=== PATIENT | female | born 1975 | race Hispanic/Latino ===

== ENCOUNTER 2019-02-05 21:25 | Inpatient (IN) | payer SELFPAY ==
[~2019-02-05] VITALS: Ht 154.9 cm; Wt 71.2 kg
[2019-02-05] MEDS ORDERED: KETOROLAC TROMETHAMINE 30MG/ML ONE (22:06)
[2019-02-05] MEDS ORDERED: ONDANSETRON HCL 4 MG/2 ML VIAL ONE (22:06)
[2019-02-05 22:12] LABS: BASOPHILS % (AUTO) 0.4 % (0.0-5.0); EOSINOPHILS % (AUTO) 0.3 % (0.0-8.0); HEMATOCRIT 41.3 % (36-48); LYMPHOCYTES % (AUTO) 11.6 % (21.0-51.0); MEAN CORPUSCULAR HEMOGLOBIN 27.3 pg (27.0-33.0); MEAN CORPUSCULAR HGB CONC 33.9 g/dL (32.0-36.0); MEAN CORPUSCULAR VOLUME 80.7 fL (79-99); MONOCYTES % (AUTO) 5.6 % (3.0-13.0); NEUTROPHILS % (AUTO) 82.1 % (40.0-77.0); PLATELET COUNT (AUTO) 210 K/uL (130-400); RED BLOOD CELL COUNT(AUTO) 5.12 MIL/uL (4.00-5.50); RED CELL DISTRIBUTION WIDTH 15.8 % (11.0-15.5); WHITE BLOOD COUNT (AUTO) 9.7 K/uL (4.8-10.8)
[2019-02-05 22:14] LABS: APPEARANCE,URINE Clear (CLEAR); BILIRUBIN,URINE Negative (NEGATIVE); COLOR,URINE Yellow (YELLOW); GLUCOSE, URINE (UA) Negative (NEGATIVE); KETONES,URINE Negative (NEGATIVE); LEUKOCYTE ESTERASE ,URINE Negative (NEGATIVE); NITRATE,URINE Negative (NEGATIVE); OCCULT BLOOD,URINE Negative (NEGATIVE); PROTEIN,URINE Negative (NEGATIVE); UROBILINOGEN,URINE 0.2 mg/dL (0.2-1.0)
[2019-02-05 22:21] LABS: AMPHET/METH SCREEN,URINE NEGATIVE (NEGATIVE); BARBITURATE SCREEN, URINE NEGATIVE (NEGATIVE); BENZODIAZEPINES SCREEN,URINE NEGATIVE (NEGATIVE); CANNABINOID SCREEN,URINE NEGATIVE (NEGATIVE); COCAINE SCREEN,URINE NEGATIVE (NEGATIVE); OPIATE SCREEN,URINE NEGATIVE (NEGATIVE); PHENCYCLIDINE SCREEN,URINE NEGATIVE (NEGATIVE)
[2019-02-05 22:24] LABS: CREATININE 0.7 mg/dL (0.5-1.5); POTASSIUM 3.8 mmol/L (3.5-5.1)
[2019-02-05 22:27] LABS: ALBUMIN 4.1 g/dL (3.5-5.0); BILIRUBIN,DIRECT 0.2 mg/dL (0.0-0.3); BILIRUBIN,TOTAL 1.2 mg/dL (0.2-1.0); TOTAL PROTEIN, SERUM 8.4 g/dL (6.0-8.3)
[2019-02-05 22:28] LABS: HCG,QUAL RESULT NEGATIVE (NEGATIVE)
[2019-02-06] MEDS ORDERED: ONDANSETRON HCL 4 MG/2 ML VIAL IV PRN (00:15)
[2019-02-06] MEDS ORDERED: MORPHINE SULFATE 2 MG/ML 1ML SYG IV PRN (00:15)
[2019-02-06 02:40] VITALS: BP 136/71
[2019-02-06] MEDS: SODIUM CHLORIDE 0.9% 1000ML 1,000 ML IV SCH ×3 (03:19→17:27)
[2019-02-06] MEDS: KETOROLAC TROMETHAMINE 15MG/ML IV PRN (05:58)
[2019-02-06 07:00] VITALS: BP 112/70
[2019-02-06] MEDS: ENOXAPARIN SODIUM 40 MG/0.4 ML SYRINGE SQ SCH (09:00)
--- NOTE | 2019-02-06 10:01 | NUR ---
Niesha MORALES with Dr. Wise returned my call, notified her of consult for Dr. Wise, states she will let him know and call me back.
--- NOTE | 2019-02-06 10:40 | NUR ---
Niesha LINE ERECTOR APPRENTICE with Dr. Wise called me back stated Dr. Wise stated to call Dr. Mcarthur with pt.
[2019-02-06] MEDS: FAMOTIDINE/PF 20 MG/2 ML VIAL IV SCH ×2 (10:51→20:45)
--- NOTE | 2019-02-06 10:55 | NUR ---
Spoke with Nolvia at Dr. Mcarthur's office, states Dr. Mcarthur is not aviation survival technician and pt was given an appointment for 02/17/2019 at 2:30pm. Attempted to call Niesha back to notify her Dr. Mcarthur will not see the pt. No answer. Had her paged.
[2019-02-06 11:00] VITALS: BP 111/74
--- NOTE | 2019-02-06 12:05 | NUR ---
Spoke with Niesha MORALES with Dr. Wise, she said that Dr. 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 Called Dr. Mcarthur directly notified him of consult, states he will see the pt. and can feed her clear liquid diet.
[2019-02-06 16:00] VITALS: BP 131/78
--- NOTE | 2019-02-06 16:50 | NUR ---
Dr. Mcarthur in to see pt.
[2019-02-06] MEDS ORDERED: MAGNESIUM CITRATE 296 ML SOLUTION PO ONE (18:45)
[2019-02-06 20:00] VITALS: BP 135/88
[2019-02-07 00:04] VITALS: BP 126/75
[2019-02-07 04:00] VITALS: BP 140/56
[2019-02-07 05:10] LABS: BASOPHILS % (AUTO) 0.3 % (0.0-5.0); EOSINOPHILS % (AUTO) 2.3 % (0.0-8.0); HEMATOCRIT 34.9 % (36-48); LYMPHOCYTES % (AUTO) 30.6 % (21.0-51.0); MEAN CORPUSCULAR HEMOGLOBIN 27.2 pg (27.0-33.0); MEAN CORPUSCULAR HGB CONC 33.6 g/dL (32.0-36.0); MEAN CORPUSCULAR VOLUME 80.9 fL (79-99); MONOCYTES % (AUTO) 7.8 % (3.0-13.0); PLATELET COUNT (AUTO) 161 K/uL (130-400); RED BLOOD CELL COUNT(AUTO) 4.31 MIL/uL (4.00-5.50); RED CELL DISTRIBUTION WIDTH 15.6 % (11.0-15.5); WHITE BLOOD COUNT (AUTO) 6.2 K/uL (4.8-10.8)
[2019-02-07 05:24] LABS: CREATININE 0.5 mg/dL (0.5-1.5); POTASSIUM 4.1 mmol/L (3.5-5.1)
[2019-02-07] MEDS: SODIUM CHLORIDE 0.9% 1000ML 1,000 ML IV SCH ×2 (05:46→16:33)
[2019-02-07 07:00] VITALS: BP 123/79
[2019-02-07] MEDS: ENOXAPARIN SODIUM 40 MG/0.4 ML SYRINGE SQ SCH ×2 (09:00→09:30)
[2019-02-07] MEDS: FAMOTIDINE/PF 20 MG/2 ML VIAL IV SCH ×2 (09:30→21:50)
[2019-02-07] MEDS ORDERED: DIATR MEGLU/DIATRIZOATE SODIUM 30 ML BOTTLE ONE (10:30)
[2019-02-07 11:00] VITALS: BP 141/90
[2019-02-07 16:00] VITALS: BP 116/72
[2019-02-07 20:00] VITALS: BP 133/74
[2019-02-07] MEDS: KETOROLAC TROMETHAMINE 15MG/ML IV PRN (21:50)
[2019-02-08 00:03] VITALS: BP 109/66
[2019-02-08 04:02] VITALS: BP 136/77
[2019-02-08 05:50] LABS: BASOPHILS % (AUTO) 0.5 % (0.0-5.0); EOSINOPHILS % (AUTO) 5.3 % (0.0-8.0); HEMATOCRIT 36.7 % (36-48); LYMPHOCYTES % (AUTO) 33.8 % (21.0-51.0); MEAN CORPUSCULAR HEMOGLOBIN 26.6 pg (27.0-33.0); MEAN CORPUSCULAR HGB CONC 32.2 g/dL (32.0-36.0); MEAN CORPUSCULAR VOLUME 82.5 fL (79-99); MONOCYTES % (AUTO) 7.8 % (3.0-13.0); NEUTROPHILS % (AUTO) 52.6 % (40.0-77.0); NUCLEATED RED BLOOD CELLS 0.1 % (0.0-0.19); PLATELET COUNT (AUTO) 160 K/uL (130-400); RED BLOOD CELL COUNT(AUTO) 4.45 MIL/uL (4.00-5.50); RED CELL DISTRIBUTION WIDTH 15.9 % (11.0-15.5); WHITE BLOOD COUNT (AUTO) 5.9 K/uL (4.8-10.8)
[2019-02-08] MEDS: SODIUM CHLORIDE 0.9% 1000ML 1,000 ML IV SCH (06:16)
[2019-02-08 06:21] LABS: ALBUMIN 3.1 g/dL (3.5-5.0); CREATININE 0.6 mg/dL (0.5-1.5); POTASSIUM 3.8 mmol/L (3.5-5.1); TOTAL PROTEIN, SERUM 6.6 g/dL (6.0-8.3)
[2019-02-08 07:00] VITALS: BP 121/72
--- NOTE | 2019-02-08 08:00 | NUR ---
Received Mag sulfate and had oral contrast 02/07/2019 Addendum: 02/08/19 at 1107 by TENISHA VAUGHAN RN RN Amended: Links added.
[2019-02-08] MEDS: ENOXAPARIN SODIUM 40 MG/0.4 ML SYRINGE SQ SCH (09:00)
[2019-02-08] MEDS: FAMOTIDINE/PF 20 MG/2 ML VIAL IV SCH (10:19)
[2019-02-08 11:00] VITALS: BP 122/80
--- NOTE | 2019-02-08 15:27 | NUR ---
Notified Dr. King that Dr. Mcarthur was in to see pt & is ok to discharge her if she tolerates a regular diet. Inst. by her to call after pt. finished eating and let her know how pt. does. Addendum: 02/08/19 at 1539 by TENISHA VAUGHAN RN RN Notified Dr. Lainez, caitlyn King.
[2019-02-08 16:00] VITALS: BP 131/78
--- NOTE | 2019-02-08 19:30 | NUR ---
Discharge instructions given to the pt., pt. able to teach back. Will call for w/c when her ride is here.
== END 2019-02-08 20:40 | disposition home or self-care (01) | DRG 446 ==
LOC: EDH 21:25 → EDHIP 21:26 → 3DH 02-06 01:38 → 3AH 02-06 02:23
PROVIDERS: ADMIT Internal Medicine; ATTEND Internal Medicine
DX: K80.70 Calculus of gallbladder and bile duct without cholecystitis without obstruction (principal); Z88.1 Allergy status to other antibiotic agents; Z91.013 Allergy to seafood; Z88.8 Allergy status to other drugs, medicaments and biological substances; Z91.018 Allergy to other foods
CPT/HCPCS: 36415; 74176; 76705; 80048; 80053; 80076; 80305; 81003; 81025; 83690; 85025; A6250; G0378; J1650; J1885; J2405; J3490; Q9963

== ENCOUNTER 2021-08-31 11:47 | Emergency (ER) | payer OTHER, SELFPAY ==
[~2021-08-31] VITALS: Ht 154.9 cm; Wt 79.4 kg
[2021-08-31 11:56] VITALS: BP 140/76
[2021-08-31] MEDS ORDERED: HYDROCODONE/ACETAMINOPHEN 10/325 MG TAB PO ONE (13:00)
[2021-08-31] MEDS ORDERED: TETANUS/DIPHTHERIA TOXOID [ADULT] 0.5 ML VIAL IM ONE (13:00)
[2021-08-31] MEDS ORDERED: CYCLOBENZAPRINE HCL 10 MG TABLET PO ONE (13:00)
[2021-08-31] MEDS ORDERED: NAPR-1180 PO (13:43)
[2021-08-31] MEDS ORDERED: CYCL10TA16 PO (13:43)
== END 2021-08-31 14:24 | disposition home or self-care (01) ==
LOC: EDH 11:47
DX: S39.012A Strain of muscle, fascia and tendon of lower back, initial encounter (principal); S40.012A Contusion of left shoulder, initial encounter; S50.02XA Contusion of left elbow, initial encounter; S90.02XA Contusion of left ankle, initial encounter; S90.512A Abrasion, left ankle, initial encounter; I10 Essential (primary) hypertension; E66.9 Obesity, unspecified; Z88.8 Allergy status to other drugs, medicaments and biological substances; Z88.2 Allergy status to sulfonamides; V20.0XXA Motorcycle driver injured in collision with pedestrian or animal in nontraffic accident, initial encounter; Z79.1 Long term (current) use of non-steroidal anti-inflammatories (NSAID); Y93.89 Activity, other specified; Y92.89 Other specified places as the place of occurrence of the external cause; Y99.8 Other external cause status
CPT/HCPCS: 72100; 73030; 73070; 73610; 90471; 90714

== ENCOUNTER 2022-10-09 13:25 | Emergency (ER) | payer OTHER ==
[~2022-10-09] VITALS: Ht 175.3 cm; Wt 79.4 kg
[~2022-10-09 13:25] MED LIST: CYCL10TA16 PO; NAPR-1180 PO
[2022-10-09] MEDS ORDERED: KETOROLAC 30MG VIAL (30MG/ML) IM ONE (14:00)
[2022-10-09 16:03] VITALS: BP 143/81
== END 2022-10-09 16:03 | disposition home or self-care (01) ==
LOC: EDH 13:25
DX: M54.50 Low back pain, unspecified (principal); M54.6 Pain in thoracic spine; M25.551 Pain in right hip; J45.909 Unspecified asthma, uncomplicated; E78.00 Pure hypercholesterolemia, unspecified; I10 Essential (primary) hypertension; W18.39XA Other fall on same level, initial encounter; Y93.89 Activity, other specified; Y92.89 Other specified places as the place of occurrence of the external cause; Y99.8 Other external cause status
CPT/HCPCS: 99284; 71045; 72100; 72072; J1885

== ENCOUNTER 2022-12-24 20:01 | Emergency (ER) | payer OTHER ==
[~2022-12-24] VITALS: Ht 154.9 cm; Wt 77.1 kg
[2022-12-24] MEDS ORDERED: ACETAMINOPHEN 500 MG TABLET PO ONE (20:30)
[2022-12-24] MEDS ORDERED: ACETAMINOPHEN 500 MG TABLET ONE (20:52)
[2022-12-24] MEDS ORDERED: NAPR375T6 PO (22:03)
[2022-12-24 22:33] VITALS: BP 136/73
== END 2022-12-24 22:34 | disposition home or self-care (01) ==
LOC: EDH 20:01
DX: M25.561 Pain in right knee (principal); M25.511 Pain in right shoulder; M54.50 Low back pain, unspecified; M54.6 Pain in thoracic spine; I10 Essential (primary) hypertension; E78.00 Pure hypercholesterolemia, unspecified; J45.909 Unspecified asthma, uncomplicated; E66.01 Morbid (severe) obesity due to excess calories; Z68.31 Body mass index [BMI] 31.0-31.9, adult; Z91.030 Bee allergy status; Z91.018 Allergy to other foods; Z88.2 Allergy status to sulfonamides; Z88.5 Allergy status to narcotic agent; Z88.8 Allergy status to other drugs, medicaments and biological substances; X58.XXXA Exposure to other specified factors, initial encounter; Y93.89 Activity, other specified; Y92.89 Other specified places as the place of occurrence of the external cause; Y99.8 Other external cause status
CPT/HCPCS: 72070; 72100; 73030; 73562

== ENCOUNTER 2023-09-09 22:46 | Emergency (ER) | payer OTHER ==
[~2023-09-09] VITALS: Ht 154.9 cm; Wt 73.0 kg
[2023-09-10 01:12] LABS: BASOPHILS # (AUTO) 0.07 K/uL (0.00-0.20); BASOPHILS % (AUTO) 0.4 % (0.0-5.0); EOSINOPHILS # (AUTO) 0.29 K/uL (0.00-0.70); EOSINOPHILS % (AUTO) 1.6 % (0.0-8.0); LYMPHOCYTES % (AUTO) 11.3 % (21.0-51.0); MEAN CORPUSCULAR HGB CONC 31.7 g/dL (32.0-36.0); MEAN CORPUSCULAR VOLUME 81.9 fL (79-99); MONOCYTES # (AUTO) 1.3 K/uL (0.1-1.0); MONOCYTES % (AUTO) 7.2 % (3.0-13.0); NEUTROPHILS # (AUTO) 13.9 K/uL (1.8-7.7); NEUTROPHILS % (AUTO) 78.9 % (40.0-77.0); PLATELET COUNT (AUTO) 525 K/uL (130-400); RED BLOOD CELL COUNT(AUTO) 3.54 MIL/uL (4.00-5.50); RED CELL DISTRIBUTION WIDTH 13.6 % (11.0-15.5); WHITE BLOOD COUNT (AUTO) 17.6 K/uL (4.8-10.8)
[2023-09-10 01:23] LABS: CREATININE 0.7 mg/dL (0.5-1.5); POTASSIUM 4.3 mmol/L (3.5-5.1)
[2023-09-10 01:27] LABS: ALBUMIN 2.7 g/dL (3.5-5.0); BILIRUBIN,TOTAL 0.5 mg/dL (0.2-1.0); TOTAL PROTEIN, SERUM 7.7 g/dL (6.0-8.3)
[2023-09-10 01:42] LABS: APPEARANCE,URINE CLOUDY (CLEAR); BILIRUBIN,URINE NEGATIVE (NEGATIVE); COLOR,URINE YELLOW (YELLOW); GLUCOSE, URINE (UA) NEGATIVE (NEGATIVE); KETONES,URINE NEGATIVE (NEGATIVE); LEUKOCYTE ESTERASE ,URINE 250 Leu/uL (NEGATIVE); NITRATE,URINE NEGATIVE (NEGATIVE); OCCULT BLOOD,URINE NEGATIVE (NEGATIVE); PH,URINE 5.5 (5.0-8.0); PROTEIN,URINE 30 mg/dL (NEGATIVE); UROBILINOGEN,URINE 0.2 mg/dL (0.2-1.0)
[2023-09-10 01:54] LABS: ADD UA MICROSCOPIC YES
[2023-09-10 02:00] LABS: BACTERIA,URINE RARE /HPF (None Seen); MUCUS,URINE FEW LPF (None Seen); SQUAMOUS EPITHELIAL CELL,UR FEW /HPF (0-2)
[2023-09-10] MEDS ORDERED: 0.9%NACL 1000ML 2,000 ML IV ONE (02:30)
[2023-09-10] MEDS ORDERED: IBUP-1493 PO (03:52)
[2023-09-10] MEDS ORDERED: CEFU500T67 PO (03:52)
[2023-09-10] MEDS ORDERED: DOCU-116 PO (03:53)
[2023-09-10] MEDS: CEFTRIAXONE 1G VIAL IVPB ONE ×2 (04:29→05:14)
[2023-09-10] MEDS ORDERED: LEVO-70 PO (05:10)
[2023-09-10 05:30] VITALS: BP 135/68; PULSE 89; RESP 18; O2SAT 99
[2023-09-10] MEDS ORDERED: LEVOFLOXACIN 500 MG TABLET PO ONE (05:30)
== END 2023-09-10 06:12 | disposition home or self-care (01) ==
LOC: EDH 22:46
DX: C50.912 Malignant neoplasm of unspecified site of left female breast (principal); N39.0 Urinary tract infection, site not specified; E86.0 Dehydration; E11.9 Type 2 diabetes mellitus without complications; Z79.899 Other long term (current) drug therapy; Z98.890 Other specified postprocedural states; Z91.041 Radiographic dye allergy status; Z88.2 Allergy status to sulfonamides; Z88.5 Allergy status to narcotic agent; Z88.8 Allergy status to other drugs, medicaments and biological substances
CPT/HCPCS: 99284; 82550; 80053; 85025; 87040 ×2; 87077; 87088; 87186; 83605; 81001; 36415; 74018; 96360; 71045; 96361; J7030; J0696

== ENCOUNTER 2024-07-07 10:52 | Emergency (ER) | payer MEDICAID, OTHER ==
[~2024-07-07] VITALS: Ht 154.9 cm; Wt 59.0 kg
[~2024-07-07 10:52] MED LIST changes: +DOCU-116 PO; +IBUP-1493 PO; +LEVO-70 PO
[2024-07-07] MEDS ORDERED: MEPERIDINE-PF 25 MG/ML SYG IVP ONE (11:30)
[2024-07-07 11:59] LABS: BASOPHILS # (AUTO) 0.07 K/uL (0.00-0.20); BASOPHILS % (AUTO) 0.4 % (0.0-5.0); EOSINOPHILS # (AUTO) 0.05 K/uL (0.00-0.70); EOSINOPHILS % (AUTO) 0.3 % (0.0-8.0); HEMATOCRIT 31.2 % (36-48); IMMATURE GRANULOCYTE ABSOLUTE 0.29 K/uL (0-1); LYMPHOCYTES # (AUTO) 0.9 K/uL (1.0-4.8); LYMPHOCYTES % (AUTO) 4.8 % (21.0-51.0); MEAN CORPUSCULAR HEMOGLOBIN 27.4 pg (27.0-33.0); MEAN CORPUSCULAR HGB CONC 32.4 g/dL (32.0-36.0); MEAN CORPUSCULAR VOLUME 84.8 fL (79-99); MONOCYTES # (AUTO) 0.9 K/uL (0.1-1.0); MONOCYTES % (AUTO) 4.7 % (3.0-13.0); NEUTROPHILS # (AUTO) 16.5 K/uL (1.8-7.7); NEUTROPHILS % (AUTO) 88.2 % (40.0-77.0); PLATELET COUNT (AUTO) 494 K/uL (130-400); RED BLOOD CELL COUNT(AUTO) 3.68 MIL/uL (4.00-5.50); RED CELL DISTRIBUTION WIDTH 16.4 % (11.0-15.5); WHITE BLOOD COUNT (AUTO) 18.7 K/uL (4.8-10.8)
[2024-07-07] MEDS: 0.9%NACL 1000ML 1,770 ML IV ONE (12:05)
[2024-07-07 12:06] VITALS: TEMP 101.1
[2024-07-07] MEDS: MEPERIDINE-PF 25 MG/ML SYG IVP ONE ×2 (12:06→16:41)
[2024-07-07] MEDS: acetaMINOPHEN 500 MG TABLET PO ONE (12:06)
[2024-07-07 12:09] LABS: CREATININE 0.5 mg/dL (0.5-1.0)
--- NOTE | 2024-07-07 12:15 | ERN ---
General Chief Complaint: Headache Stated Complaint: HEADPAIN Time Seen by : 11:07 Time Seen by Midlevel: 11:07 Source: patient History of Present Illness Initial Comments 49-year-old female who presents to the ED due to chronic headache. Patient reports history of left breast cancer for which a mastectomy was performed September 2023. Patient states cancer returned December 03, 2023. Patient was recently seen at [facility] where she was diagnosed with cellulitis and was transferred to a rehab center for pain control and antibiotic administration. Patient states she has oncologist in [place] but has not been able to travel due to the pain. Allergies: Coded Allergies: Penicillins (Unverified Allergy, Unknown, 09/10/23) Sulfa (Sulfonamide Antibiotics) (Verified Allergy, Unknown, 02/06/19) ceftriaxone (Unverified Allergy, Unknown, 09/10/23) diphenhydramine (Verified Allergy, Unknown, 02/06/19) iodine (Verified Allergy, Unknown, 02/06/19) lavender (Lavandula angustifolia) (Unverified Allergy, Unknown, 02/06/19) morphine (Unverified Allergy, Unknown, 10/09/22) pork derived (porcine) (Verified Allergy, Unknown, 02/06/19) shellfish derived (Verified Allergy, Unknown, 02/06/19) Home Meds Active Scripts Levofloxacin (Levofloxacin) 500 Mg Tablet, 500 MG PO DAILY, #10 TAB Prov:AUBREY HALL MD 09/10/23 Docusate Sodium (Colace) 100 Mg Capsule, 100 MG PO BID PRN for CONSTIPATION, #60 CAP Prov:AUBREY HALL MD 09/10/23 Ibuprofen (Motrin/Advil) 800 Mg Tab, 800 MG PO TID, #30 TAB Prov:AUBREY HALL MD 09/10/23 Cyclobenzaprine HCl (Flexeril) 10 Mg Tab, 10 MG PO BIDAC, #30 TAB Prov:ANDREA COFFMAN 08/31/21 Naproxen (Naprosyn) 500 Mg Tablet, 500 MG PO BIDPC, #60 TAB Prov:ANDREA COFFMAN 08/31/21 Past Medical History Past Medical History: Asthma, Cancer Medical History Other: SKIN GRAFT - OCT 2023 Past Surgical History: Other Social History Social History: Negative, Lives with family Female( History) History: Not Applicable ROS Dictation Constitutional: Negative for fever,chills, and weight loss Eyes: Negative for injury, pain,redness, and discharge ENT: Negative for injury,pain or swelling Cardiovascular: Negative for chest pain, palpitations, and edema Respiratory: Negative for shortness of breath, cough, and wheezing, Chest: Positive for chest mass and pain Abdomen/GI: Negative for abdominal pain, nausea, vomiting, diarrhea, and constipation Back: Negative for injury and pain : Negative for painful urination, bleeding or discharge MS/Extremity: Negative for injury and deformity Skin: Negative for rash, and discoloration Neuro: Positive for headache Negative for weakness, numbness, tingling, and seizure Psych: Negative for suicide ideation, homicidal ideation, and hallucinations Physical Exam Physical Exam Dictation General: awake, alert, no acute distress Head/Face: 2 right-sided masses measuring approximately 5 cm tender upon palpation Eyes: normal conjunctiva ENT: oral mucosa moist Neck: Normal range of motion, supple Cardiovascular: RRR Chest: Left breast mass, erythematous, ecchymosis, tenderness Respiratory: no respiratory distress Abdomen: Soft, non-tender, non-distended, no guarding or rebound. Skin: Warm, dry, normal turgor, no rash MS/Extremity: Pulses equal, no cyanosis, neurovascular intact, FROM Neuro: COAx4, GCS 15, no neurological deficits Psych: Normal behavior, mood, and affect normal Results Laboratory and Microbiology Lab and Micro Result Laboratory Tests Test 07/07/24 11:26 07/07/24 11:49 07/07/24 15:24 Procalcitonin 1.02 ng/mL (0.05-0.5) H White Blood Count 18.7 K/uL (4.8-10.8) H Red Blood Count 3.68 MIL/uL (4.00-5.50) L Hemoglobin 10.1 g/dL (12.0-16.0) L Hematocrit 31.2 % (36-48) L Mean Corpuscular Volume 84.8 fL (79-99) Mean Corpuscular Hemoglobin 27.4 pg (27.0-33.0) Mean Corpuscular Hemoglobin Concent 32.4 g/dL (32.0-36.0) Red Cell Distribution Width 16.4 % (11.0-15.5) H Platelet Count 494 K/uL (130-400) H Mean Platelet Volume 9.2 fL (7.5-10.5) Immature Granulocyte % (Auto) 1.6 % (0-1) H Neutrophils (%) (Auto) 88.2 % (40.0-77.0) H Lymphocytes (%) (Auto) 4.8 % (21.0-51.0) L Monocytes (%) (Auto) 4.7 % (3.0-13.0) Eosinophils (%) (Auto) 0.3 % (0.0-8.0) Basophils (%) (Auto) 0.4 % (0.0-5.0) Neutrophils # (Auto) 16.5 K/uL (1.8-7.7) H Lymphocytes # (Auto) 0.9 K/uL (1.0-4.8) L Monocytes # (Auto) 0.9 K/uL (0.1-1.0) Eosinophils # (Auto) 0.05 K/uL (0.00-0.70) Basophils # (Auto) 0.07 K/uL (0.00-0.20) Absolute Immature Granulocyte (auto 0.29 K/uL (0-1) Nucleated Red Blood Cells 0.0 % (0.0-0.19) White Cell Morphology Comment See comments Sodium Level 135 mmol/L (136-145) L Potassium Level 4.0 mmol/L (3.5-5.1) Chloride Level 98 mmol/L (101-111) L Carbon Dioxide Level 25 mmol/L (21-32) Blood Urea Nitrogen 9 mg/dL (7-18) Creatinine 0.5 mg/dL (0.5-1.0) Glomerular Filtration Rate Calc 113 mL/min (>90) Random Glucose 144 mg/dL (70-105) H Lactic Acid Level 3.2 mmol/L (0.8-2.5) H 2.8 mmol/L (0.8-2.5) H Total Calcium 9.7 mg/dL (8.5-10.1) Total Creatine Kinase 201 U/L (21-232) # Troponin I High Sensitivity 9 ng/L (4-50) Labs Reviewed?: Yes EKG/XRAY/US/CT/MRI X-RAY Comment REASON: Fever ORDERING PHYSICIAN: JACE MERCEDES PROCEDURE: CXR1VW - CHEST 1VW CHEST 1VW HISTORY: Fever of unknown origin COMPARISON: 09/10/2023 FINDINGS: A frontal projection of the chest was obtained. Bilateral lung masses are seen with the largest in the right perihilar region measuring 5.7 x 5.4 cm. Findings are suspicious for lung metastases. The heart is normal in size. Mild degenerative changes are seen. No evidence of aortic calcification is seen. There appears to be left breast mass. IMPRESSION: 1. Bilateral lung masses suggestive of lung metastases. There appears the left breast mass. CT Scan Comment REASON: Headache / Right sided masses ORDERING PHYSICIAN: JACE MERCEDES PROCEDURE: HEAD WO - CT HEAD/BRAIN W/O CONTRAST CT HEAD/BRAIN W/O CONTRAST HISTORY: Headaches COMPARISON: None TECHNIQUE: Multiple sequential axial images of the head were obtained from the base of the skull through vertex. Patient was not given contrast through intravenous route. FINDINGS: The ventricles and extraventricular CSF spaces are nondilated for patient's age. There is no midline shift, mass effect or herniation. There is acute right subdural hematoma measuring 5.5 mm in thickness. Right frontal scalp soft tissue swelling is also seen. There is also right parietal acute extra-axial hematoma measuring 7 mm in thickness. Visualized portion of the paranasal sinuses are grossly within normal limits. Due to patient history of breast cancer, possible neoplastic process cannot be excluded. IMPRESSION: 1. There is acute right subdural hematoma measuring 5.5 mm in thickness. Right frontal scalp soft tissue swelling is also seen. There is also right parietal acute extra-axial hematoma measuring 7 mm in thickness. Report was given to the emergency room physician. CT was performed with one or more following dose reduction techniques: automated exposure control, adjustment of the mA and kv according to patient's size, or use of a iterative reconstruction technique. MDM MDM: Differential diagnosis: Excruciating pain, metastasis, breast cancer Rationale: 49-year-old female who presents to the ED due to chronic headache. Patient reports history of left breast cancer for which a mastectomy was p erformed September 2023. Patient states cancer returned December 03, 2023. Patient was recently seen at [facility] where she was diagnosed with cellulitis and was transferred to a rehab center for pain control and antibiotic administration. Patient states she has oncologist in [place] but has not been able to travel due to the pain. Labs, chest x-ray, CT head obtained. Labs indicate elevated WBC at 18.7 anemia with hemoglobin of 10.1, elevated platelets at 494, lactic acid at 3.2, procalcitonin 1.02. Chest x-ray indicates bilateral lung masses suggestive of metastasis and left breast mass. CT head indicates right subdural hematoma measuring 5.5 mm frontal right soft tissue swelling and right parietal external axial hematoma measuring 7 mm. Patient was administered antibiotics, Tylenol, Demerol, and 1 L NS in the ED. Due to patient's CT results of subdural hematoma patient needed to be transferred to [facility] due to no neurosurgeon available here. Patient and family educated on findings and diagnosis. Dr. Bob consulted neurosurgeon at [facility], and spoke to ER physician who accepted admission. Findings of metastasis, cellulitis, and subdural hematoma were discussed with accepting physicians at [facility]. Patient verbalized understanding and accepting transfer to [facility]. Previous outside records reviewed: Old ER visits. Risk of complication and/or morbidity or mortality of patient management: None Medications-Per medication reconciliation Need for hospitalization: Patient does meet criteria for hospitalization. Need for emergency major/minor surgery: No There are no social concerns with this patient. Prescription drug management Prescriptions will include symptomatic care Patient's prior external medical records from other ER visits were reviewed by me as indicated. Prior testing and results from previous visits were reviewed. Prior tests were taken into account with medical decision making and resource utilization, independent historian/historians were used to obtain complete medical history. I independently interpreted the test that were performed, results were reviewed by me and considered findings on radiology if ordered. Medical management and examination interpretation discussions were had by me with other qualified healthcare professionals as indicated for the patient's care. ED Course Orders Procedure Category Date Status Time Cbc With Differential LAB 07/07/24 Complete 11:26 Basic Metabolic Panel LAB 07/07/24 Complete 11:26 Procalcitonin LAB 07/07/24 Complete 11: Lactic Acid LAB 07/07/24 Complete 11:26 Chest 1vw RAD 07/07/24 Resulted 11:26 Ct Head/Brain W/O CT 07/07/24 Resulted Contrast 11:26 Blood Cult BRITTNY 07/07/24 Complete 11:26 0.9%Nacl 1000ml (Ns PHA 07/07/24 Complete 1000ml) 11:30 Creatine Kinase, Total LAB 07/07/24 Complete 11:26 Troponin I High LAB 07/07/24 Complete Sensitivity 11:26 Meperidine Hcl/Pf PHA 07/07/24 Complete (Demerol-Pf) 11:30 Acetaminophen 500mg PHA 07/07/24 Complete Tab (Tylenol 500mg T 11:30 Meperidine Hcl/Pf PHA 07/07/24 Complete (Demerol-Pf) 12:00 Lactic Acid (Removed) LAB 07/07/24 Complete 15:03 Vancomycin 1g/250ml PHA 07/07/24 Complete Kit (Vancomycin 1g/2 15:30 Aztreonam (Azactam) PHA 07/07/24 Complete 15:30 Meperidine Hcl/Pf PHA 07/07/24 Complete (Demerol-Pf) 17:00 Vital Signs Date Time Temp Pulse Resp B/P (MAP) Pulse Ox O2 Delivery O2 Flow Rate FiO2 07/07/24 15:09 98.8 117 16 145/88 98 Nasal Cannula* 2 28 07/07/24 14:07 98.4 110 16 157/82 97 Nasal Cannula* 2 28 07/07/24 12:52 98.4 112 16 160/82 98 Nasal Cannula* 2 07/07/24 12:06 101.1 07/07/24 11:45 100.9 121 0 153/82 Room Air* 0 21 07/07/24 10:54 98.2 136 22 133/83 98 Room Air 0 Critical Care Note Comments Critical Care Procedure Note Authorized and Performed by: me Total critical care time: Approximately 36 minutes Due to a high probability of clinically significant, life threatening dete rioration, the patient required my highest level of preparedness to intervene emergently and I personally spent this critical care time directly and personally managing the patient. This critical care time included obtaining a history; examining the patient; pulse oximetry; ordering and review of studies; arranging urgent treatment with development of a management plan; evaluation of patient's response to treatment; frequent reassessment; and, discussions with other providers. This critical care time was performed to assess and manage the high probability of imminent, life-threatening deterioration that could result in multi-organ f ailure. It was exclusive of separately billable procedures and treating other patients and teaching time. Please see MDM section and the rest of the note for further information on patient assessment and treatment. DX & DISP Disposition: Transfer Decision to Admit Date: Jul 07, 2024 Decision to Admit Time: 12:30 Departure Impression: Primary Impression: Metastatic cancer Additional Impressions: Subdural hematoma, Cellulitis, Sepsis Critical Time: 30 minutes Condition: Stable Referrals: SELF,REFERRAL (PCP) I performed this substantive portion of this visit. I have reviewed and personally made and approve the management plan that is documented in the note by myself or the VASILIY. I acknowledge full responsibility for the patient's management plan. JACE MERCEDES Jul 07, 2024 12:15 IRENE BOB MD Aug 22, 2024 10:33
--- NOTE | 2024-07-07 12:53 | HMCIMG ---
CT HEAD/BRAIN W/O CONTRAST HISTORY: Headaches COMPARISON: None TECHNIQUE: Multiple sequential axial images of the head were obtained from the base of the skull through vertex. Patient was not given contrast through intravenous route. FINDINGS: The ventricles and extraventricular CSF spaces are nondilated for patient's age. There is no midline shift, mass effect or herniation. There is acute right subdural hematoma measuring 5.5 mm in thickness. Right frontal scalp soft tissue swelling is also seen. There is also right parietal acute extra-axial hematoma measuring 7 mm in thickness. Visualized portion of the paranasal sinuses are grossly within normal limits. Due to patient history of breast cancer, possible neoplastic process cannot be excluded. IMPRESSION: 1. There is acute right subdural hematoma measuring 5.5 mm in thickness. Right frontal scalp soft tissue swelling is also seen. There is also right parietal acute extra-axial hematoma measuring 7 mm in thickness. Report was given to the emergency room physician. CT was performed with one or more following dose reduction techniques: automated exposure control, adjustment of the mA and kv according to patient's size, or use of a iterative reconstruction technique.
--- NOTE | 2024-07-07 13:26 | HMCIMG ---
CHEST 1VW HISTORY: Fever of unknown origin COMPARISON: 09/10/2023 FINDINGS: A frontal projection of the chest was obtained. Bilateral lung masses are seen with the largest in the right perihilar region measuring 5.7 x 5.4 cm. Findings are suspicious for lung metastases. The heart is normal in size. Mild degenerative changes are seen. No evidence of aortic calcification is seen. There appears to be left breast mass. IMPRESSION: 1. Bilateral lung masses suggestive of lung metastases. There appears the left breast mass.
[2024-07-07 15:09] VITALS: BP 145/88; PULSE 117; RESP 16; TEMP 98.8; O2SAT 98
[2024-07-07] MEDS: VANCOMYCIN KIT 1 GM/250 ML IV.KIT IV ONE (16:27)
[2024-07-07] MEDS: AZTREONAM 1 GM VIAL IVPB SCH (16:27)
--- NOTE | 2024-07-07 17:15 | NUR ---
REPORT GIVEN TO MANUELA ANGULO AT [facility] [place] AT 1750, CALLED [facility] FOR TRANSFER ROTATING FIELD ASSEMBLER.
--- NOTE | 2024-07-07 18:19 | NUR ---
1817 PT PICKED UP BY [facility], PT TRANSFERRED VIA STRETCHER, PT WHEEL CHAIR TAKEN BY EMS TECH. SPOUSE TOOK ALL PERSONAL BELONGINGS. PT STABLE NO DISTRESS VITALS WNL NO C/O PAIN NOW.
--- NOTE | 2024-07-15 14:59 | NUR ---
AFTER REVIEW OF THE BLOOD CULTURE REPORT, DR. SANDHU HAS DETERMINED NO FURTHER ACTION IS NEEDED DUE TO NO GROWTH AFTER 5 DAYS.
== END 2024-07-07 18:20 | disposition short-term general hospital (02) ==
LOC: EDH 10:52
DX: S06.5X0A Traumatic subdural hemorrhage without loss of consciousness, initial encounter (principal); A41.9 Sepsis, unspecified organism; L03.90 Cellulitis, unspecified; C79.81 Secondary malignant neoplasm of breast; J45.909 Unspecified asthma, uncomplicated; Z79.899 Other long term (current) drug therapy; Z88.2 Allergy status to sulfonamides; Z91.041 Radiographic dye allergy status; Z88.0 Allergy status to penicillin; Z88.1 Allergy status to other antibiotic agents; Z88.5 Allergy status to narcotic agent; Z88.8 Allergy status to other drugs, medicaments and biological substances; Z91.014 Allergy to mammalian meats; Z91.013 Allergy to seafood; Z98.890 Other specified postprocedural states; X58.XXXA Exposure to other specified factors, initial encounter; Y93.89 Activity, other specified; Y92.89 Other specified places as the place of occurrence of the external cause; Y99.8 Other external cause status
CPT/HCPCS: 99291; 96365; 96361; 70450; 96366; 96375; 82550; 84484; 80048; 85025; 87040; 83605 ×2; 36415; 71045; 96368; 96376; 84145; J7030; J3370; J2175 ×2; J3490